=== PATIENT | female | born 2000 | race Two or more races ===

== ENCOUNTER 2022-06-14 14:32 | Emergency (ER) | payer OTHER ==
[~2022-06-14] VITALS: Ht 165.1 cm; Wt 56.7 kg
--- NOTE | 2022-06-14 15:01 | NUR ---
DR ROBERTS AT BEDSIDE
--- NOTE | 2022-06-14 17:16 | NUR ---
Patient discharged to home in stable condition. Written and verbal after care instructions given. Patient verbalizes understanding of instruction.
[2022-06-14 17:17] VITALS: BP 125/79
== END 2022-06-14 17:18 | disposition home or self-care (01) ==
LOC: ER 14:39
DX: S06.0X0A Concussion without loss of consciousness, initial encounter (principal); W22.8XXA Striking against or struck by other objects, initial encounter; Y93.89 Activity, other specified; Y92.89 Other specified places as the place of occurrence of the external cause; Y99.8 Other external cause status
CPT/HCPCS: 70450-TC